=== PATIENT | female | born 2000 | race Caucasian/White ===

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

== ENCOUNTER 2020-11-13 23:40 | Inpatient (IN) ==
[2020-11-14] MEDS ORDERED: LABETALOL HCL 100 MG TAB PO ONE (00:24)
[2020-11-14] MEDS ORDERED: OXYTOCIN 30 UNITS/500 ML BAG IV PRN ×3 (00:25→14:18)
[2020-11-14] MEDS ORDERED: BUTORPHANOL TARTRATE 1 MG/ML VIAL IV ONE (00:35)
--- NOTE | 2020-11-14 00:35 | History & Physical Report ---
Date of Service November 14, 2020 Assessment & Plan (1) Active labor at term: Plan: 20-year-old G1, P0 at 40 weeks and 1 days of gestation presenting with contractions and cervical change, Elevated blood pressures, asymptomatic, developing preeclampsia versus pain re lated elevation of blood pressures, and 3+ protein on urine dip, heart rate reassuring, GBS negative, Plan to admit, monitor, labs, labetalol p.o. stat and monitor closely for blood pressures, Discussed pain management with IV pain medication versus epidural. Patient desires IV pain medication for now and desires to sleep. All questions were answered. (2) Elevated blood pressure affecting in third trimester, antepartum: (3) Proteinuria affecting in second trimester: History of Present Illness Primary Care Provider: Juan Francisco Serrano Patient is an 20-year-old G1, P0 at 40 weeks and 1 days of gestation who has been feeling contractions since yesterday morning, they got more regular and painful since 5 PM last night. Patient denies leakage of fluid or vaginal bleeding. Patient reports good movements. She was seen in the office yesterday afternoon and her cervix was 3 cm dilated. She was scheduled for induction of labor for this morning due to APARNA of 6.7 cm. She denies headaches, change in her vision, nausea vomiting, epigastric or right upper quadrant pain. She denies Covid symptoms, fever, chills no recent contact with Covid patients. Her has been uncomplicated except 1 class I obesity, 2) gestational proteinuria, noted on November 10 with a PC ratio of 586 mg/g, blood pressure was 150/90 at the office yesterday and elevated today with no symptoms. Urine dip today has 3+ protein. Allergies Allergy/AdvReac Type Severity Reaction Status Date / Time No Known Allergies Allergy Verified 11/13/20 23:59 Home Medications Medication Instructions Recorded Confirmed Type prenat.vits,adrian,ovs-[id number]-rfnao 1 tab PO DAILY 11/13/20 11/13/20 History Patient History Medical History Fracture, finger left middle finger fracture- pins placed Surgical History Hx of left knee surgery benign tumor removed [place] teeth removed Social History Smoking Status: Never smoker Hx Alcohol Use: No Hx Substance Use: No Preferred Language: Peruvian Communication Ability: Effective Rn Birthing Required: No Beliefs That Will Affect Care: None marital status: Current Living Situation: Parent Current Living Situation Comment: lives with her father Other Information That Helps Us Care for You: No Feels Safe at Home: Yes Safety Concerns: Feels Safe At This Time Assistive Devices: None [employer] History History of STDs including chlamydia, gonorrhea nor herpes Review of Systems All systems reviewed & are unremarkable except as noted in HPI & below as per Subjective / HPI Physical Exam Constitutional: WD/WN, vitals as above well developed, well nourished, + acute distress (Not in acute distress with contractions pain level is 4 out of 10) and + obese Gastrointestinal (Abdomen): normal bowel sounds, soft, nontender, no hepatosplenomegaly Genitourinary: normal external appearance OB Exam Abdomen: + vertex Manual OB Exam: + cervical dilation 4 cm, + cervical effacement 80% and + station -2 OB Exam Monitor Tracing: + external uterine monitor used and + category I Results & Data ([facility]) Vital Signs (Past 12 Hours) Vital Signs Temp Pulse Resp BP 11/14/20 00:19 89 179/102 H 11/14/20 00:07 79 150/99 H 11/14/20 00:01 18 11/13/20 23:56 36.8 C 86 18 145/80 H
[2020-11-14] MEDS: LACTATED RINGER'S 1,000 ML IV PRN ×3 (00:42→10:06)
[2020-11-14 00:53] LABS: Hematocrit (blood only) 35.1 % (37-47); Hemoglobin 11.6 g/dL (12.0-16.0); Mean Corpuscular Volume 81.8 fL (80-100); Mean Platelet Volume 9.9 fL (7.4-10.4); Platelet Count 352 K/uL (130-400); RDW Coefficient of Variation 14.9 % (11.5-14.5); RDW Standard Deviation 43.1 fL (36.4-46.3); Red Blood Count 4.29 M/uL (4.2-5.4); White Blood Count 13.71 K/uL (4.8-10.8)
[2020-11-14 01:08] LABS: Total Protein Urine Random 393.1 mg/dl (0-11.9)
[2020-11-14 01:09] LABS: Albumin Level 2.5 gm/dl (3.4-5.0); BUN Creatinine Ratio 15.6 (10-20); Calcium 8.9 mg/dl (8.5-10.1); Creatinine Clr Calc Pharmacy 170.9 ml/min; Est GFR (African American) 144.2 ml/min; Est GFR (Non-African American) 124.4 ml/min; Potassium 4.2 mmol/L (3.5-5.1)
[2020-11-14 01:12] LABS: Albumin Globulin Ratio 0.6 (0.9-2); Bilirubin,Total 0.2 mg/dl (0.2-1); Globulin 4.1 gm/dl (2.5-4.0); Total Protein 6.6 gm/dl (6.4-8.2)
[2020-11-14 02:15] LABS: Fibrinogen 431 mg/dl (184-400); INR 0.9 (0.9-1.1); Partial Thromboplastin Time 26.3 Seconds (21.0-31.0); Prothrombin Time 8.9 Seconds (9.0-12.0)
[2020-11-14] MEDS ORDERED: BUPIVACAINE 0.25% 30 ML VIAL ONE (04:35)
[2020-11-14] MEDS ORDERED: SODIUM CHLORIDE 0.9% INJ 10 ML VIAL ONE (04:35)
[2020-11-14] MEDS ORDERED: ePHEDrine sulfate 50 MG/ML AMP ONE (04:35)
[2020-11-14] MEDS ORDERED: fentaNYL citrate 100 MCG/2 ML VIAL ONE (04:36)
[2020-11-14] MEDS ORDERED: fentaNYL 2MCG/ML ROPIVACAINE 1.25MG/ML 100 ML BAG EPI ONE (04:36)
[2020-11-14] MEDS ORDERED: ePHEDrine sulfate 50 MG/ML AMP IV PRN (05:43)
[2020-11-14] MEDS ORDERED: ONDANSETRON INJ 2 MG/ML 2 ML VIAL IV PRN (05:43)
[2020-11-14] MEDS ORDERED: fentaNYL 2MCG/ML ROPIVACAINE 1.25MG/ML 100 ML BAG EPI PRN (05:43)
[2020-11-14] MEDS ORDERED: NALOXONE HCL 1 MG in SODIUM CHLORIDE 0.9% 1000ML 1,000 ML IV PRN (05:43)
[2020-11-14] MEDS ORDERED: NALBUPHINE HCL INJ 10 MG/ML AMP IV PRN (05:43)
[2020-11-14] MEDS ORDERED: NALOXONE HCL 0.4 MG/1 ML VIAL/CARP IV PRN (05:43)
[2020-11-14] MEDS ORDERED: diphenhydrAMINE 50 MG/ML VIAL IV PRN (05:43)
--- NOTE | 2020-11-14 05:43 | Anesthesiology Consultation ---
Date of Service November 14, 2020 Assessment & Plan ASA ASA2 Proposed Anesthesia Anesthesia Type: Labor Epidural Risk / Benefits Reviewed With: PT / POA / Parent / Guardian, Accepts Plan and Informed Consent Obtained History Height/Weight Height: 5 ft 7 in Weight: 117.48 kg Allergies Allergy/AdvReac Type Severity Reaction Status Date / Time No Known Allergies Allergy Verified 11/13/20 23:59 Medications Home Medications Medication Instructions Recorded Confirmed Last Taken prenat.vits,adrian,[id number]-[id number] 1 tab PO DAILY 11/13/20 11/13/20 11/13/20 08:00 Active Medications Generic Name Dose Route Start Last Admin Trade Name Freq PRN Reason Stop Dose Admin Lactated Ringer's 1,000 mls @ 150 mls/hr 11/14/20 00:25 11/14/20 04:57 Lr IV 11/16/20 00:24 150 mls/hr .[id number] PRN Administration L&D Protocol Protocol Oxytocin 30 units in 500 mls @ 3 mls/hr 11/14/20 01:26 11/14/20 05:00 Pitocin IV 11/16/20 01:25 0.18 units/hr .Q24H PRN 3 mls/hr Labor Induction/Augmentation Titration Protocol 0.18 UNITS/HR Past Medical History Medical History Fracture, finger left middle finger fracture- pins placed Exercise / Class Metabolic Activity II 4-5 Yardwork/Stairs/Walk up hill Past Surgical History Surgical History Hx of left knee surgery benign tumor removed [place] teeth removed Past Anesthesia History No Hx of Anesthesia Complications and No Family Hx of Anesthesia Complications History of PONV No Hx of PONV and No Hx of Motion Sickness Social History Smoking Status: Never smoker Hx Alcohol Use: No Hx Substance Use: No Review of Systems denies fever/cough/ colds/ chest pain/ SOB/ AVIVA denies AVIVA Physical Exam Vital Signs Last Vital Signs Temp 36.8 C 11/14/20 03:39 Pulse 78 11/14/20 05:41 Resp 18 11/14/20 05:40 BP 114/66 11/14/20 05:41 Pulse Ox 98 11/14/20 05:39 ENMT Mouth: no TMJ abnormality and no dentition abnormality Thyromental Distance: > or= 3.5 Finger Breadths Mallampati Class: II Neck neck extension not limited Respiratory normal respiratory effort; no respiratory distress Auscultation: lungs clear to auscultation bilaterally Cardiovascular Rate/Rhythm: regular rate and regular rhythm Neurologic moves all extremities Psychiatric Orientation: alert and oriented x 3 Testing Laboratory Results 11/14/20 00:34 11/14/20 00:34 PT 8.9 Seconds (9.0-12.0) L 11/14/20 00:34 INR 0.9 (0.9-1.1) 11/14/20 00:34 APTT 26.3 Seconds (21.0-31.0) 11/14/20 00:34 Blood Type O Positive 11/14/20 00:34 Antibody Screen NEGATIVE 11/14/20 00:34
--- NOTE | 2020-11-14 12:07 | Labor Progress Brief Note ---
Date of Service November 14, 2020 Assessment & Plan Admission and Anticipated Discharge Date Admission Date: November 14, 2020 Physical Exam Genitourinary: Manual OB Exam: + cervical dilation 5 cm and 6 cm, + cervical effacement 100%, + station -2 and + amniotic fluid clear AROM with Amni-hook clear fluid Results & Data ([facility]) Vital Signs (Past 12 Hours) Vital Signs Temp Pulse Resp BP Pulse Ox 11/14/20 12:00 113 H 98 11/14/20 11:55 79 98 11/14/20 11:53 83 140/83 11/14/20 11:50 80 97 11/14/20 11:45 86 98 11/14/20 11:40 88 97 11/14/20 11:39 86 127/83 11/14/20 11:35 82 98 11/14/20 11:30 93 H 98 11/14/20 11:25 81 97 11/14/20 11:24 78 122/77 11/14/20 11:20 80 97 11/14/20 11:15 80 97 11/14/20 11:10 82 97 11/14/20 11:09 82 121/81 11/14/20 11:05 83 97 11/14/20 11:01 18 11/14/20 11:00 84 97 11/14/20 10:55 80 97 11/14/20 10:54 83 127/82 11/14/20 10:50 83 97 11/14/20 10:45 82 97 11/14/20 10:40 84 97 11/14/20 10:38 81 129/81 11/14/20 10:35 77 97 11/14/20 10:31 37.1 C 20 11/14/20 10:30 87 98 11/14/20 10:25 83 98 11/14/20 10:24 76 134/82 11/14/20 10:20 79 98 11/14/20 10:15 93 H 98 11/14/20 10:10 83 97 11/14/20 10:09 88 146/96 H 11/14/20 10:05 82 97 11/14/20 10:01 18 11/14/20 10:00 81 98 11/14/20 09:55 75 96 11/14/20 09:54 76 135/81 11/14/20 09:50 80 97 11/14/20 09:45 76 96 11/14/20 09:40 76 96 11/14/20 09:38 75 133/81 11/14/20 09:35 76 96 11/14/20 09:31 37.1 C 20 11/14/20 09:30 74 97 11/14/20 09:25 83 137/88 98 11/14/20 09:19 82 100 11/14/20 09:14 82 98 11/14/20 09:10 73 118/70 11/14/20 09:09 75 97 11/14/20 09:04 75 97 11/14/20 09:01 20 11/14/20 08:59 77 98 11/14/20 08:54 75 121/69 97 11/14/20 08:49 79 98 11/14/20 08:44 81 99 11/14/20 08:39 80 98 11/14/20 08:38 82 123/83 11/14/20 08:34 94 H 98 11/14/20 08:31 20 11/14/20 08:29 81 98 11/14/20 08:24 87 126/82 98 11/14/20 08:19 78 98 11/14/20 08:14 78 98 11/14/20 08:09 75 98 11/14/20 08:08 81 125/79 11/14/20 08:04 75 98 11/14/20 08:01 37.2 C 20 11/14/20 07:59 79 98 11/14/20 07:54 82 98 11/14/20 07:53 78 128/76 11/14/20 07:49 85 99 11/14/20 07:46 20 11/14/20 07:44 88 98 11/14/20 07:39 92 H 133/75 99 11/14/20 07:34 77 97 11/14/20 07:31 20 11/14/20 07:29 79 97 11/14/20 07:24 81 97 11/14/20 07:23 79 124/65 11/14/20 07:19 82 96 11/14/20 07:15 20 11/14/20 07:14 98 H 97 11/14/20 07:09 82 122/68 97 11/14/20 07:04 90 99 11/14/20 06:59 85 96 11/14/20 06:55 80 121/73 11/14/20 06:54 83 96 11/14/20 06:49 88 98 11/14/20 06:44 82 98 11/14/20 06:39 83 98 11/14/20 06:34 84 98 11/14/20 06:29 94 H 98 11/14/20 06:24 75 18 127/74 97 11/14/20 06:19 78 98 11/14/20 06:14 82 98 11/14/20 06:11 36.6 C 18 11/14/20 06:09 79 99 11/14/20 06:06 79 141/77 H 11/14/20 06:04 83 98 11/14/20 06:02 82 140/74 11/14/20 05:59 78 98 11/14/20 05:57 78 116/60 11/14/20 05:54 80 99 11/14/20 05:53 83 18 108/56 L 11/14/20 05:49 79 97 11/14/20 05:47 79 110/64 11/14/20 05:44 79 97 11/14/20 05:41 78 114/66 11/14/20 05:40 83 18 113/63 11/14/20 05:39 79 98 11/14/20 05:37 85 116/60 11/14/20 05:34 80 115/62 99 11/14/20 05:31 78 18 118/66 11/14/20 05:29 88 98 11/14/20 05:28 82 16 134/75 11/14/20 05:24 82 98 11/14/20 05:19 86 99 11/14/20 05:14 77 98 11/14/20 05:09 79 98 11/14/20 05:04 102 H 99 11/14/20 04:59 101 H 99 11/14/20 04:54 78 98 11/14/20 04:49 75 97 11/14/20 04:44 82 129/74 98 11/14/20 03:40 75 125/70 11/14/20 03:39 36.8 C 16 11/14/20 03:18 83 121/66 11/14/20 02:48 83 114/59 L 11/14/20 02:18 88 114/56 L 11/14/20 01:49 81 110/59 L 11/14/20 01:03 75 121/67 11/14/20 00:54 77 121/64 11/14/20 00:43 86 18 143/93 H 11/14/20 00:19 89 179/102 H 11/14/20 00:07 79 150/99 H
[2020-11-14] MEDS ORDERED: NURSING L&D Epidural Breakthrough Pain Update ONE (13:07)
--- NOTE | 2020-11-14 14:14 | Delivery Summary ---
Vaginal Delivery Summary Date of Service November 14, 2020 Vaginal Delivery Summary Delivery Note live male TARYN over intact perineum with delayed cord clamping and Apgars of 8/9 weight pending. Cord blood obtained followed by spontaneous delivery of intact placenta. No tears. EBL 100 ml. Final sponge and instrument count are correct. Mom and baby stable.
[2020-11-14] MEDS ORDERED: DIPHTHERIA/TETANUS/PERTUSSIS 0.5 ML SYR/VIAL IM ONE (14:18)
[2020-11-14] MEDS ORDERED: bisacodyL 10 MG SUPP PR PRN (14:18)
[2020-11-14] MEDS ORDERED: SUPERCREAM 0.870% 15 GM JAR EXT PRN (14:18)
[2020-11-14] MEDS ORDERED: HYDROCORTISONE ACETATE 25 MG SUPP PR PRN (14:18)
[2020-11-14] MEDS ORDERED: BENZOCAINE 20% AER SPR 82.5 GM CAN EXT PRN (14:18)
[2020-11-14] MEDS ORDERED: ACETAMINOPHEN 325 MG TAB PO PRN (14:18)
--- NOTE | 2020-11-14 16:45 | Anesthesia Procedure Note ---
Date of Service November 14, 2020 Anesthesia Post Epidural Note Vital Signs Vital Signs: Temp Pulse Resp BP Pulse Ox 36.7 C 87 20 130/81 90 11/14/20 15:50 11/14/20 16:23 11/14/20 14:35 11/14/20 16:23 11/14/20 13:55 Pain Intensity Bilateral Lower Abdomen: Pain Intensity: 1 Notes Mental Status: alert / awake / arousable Nausea / Vomiting: adequately controlled Pain: adequately controlled Airway Patency, RR, SpO2: stable & adequate BP & HR: stable & adequate Hydration State: stable & adequate Neuraxial Anesthesia: was administered and sensory block is resolving Anesthetic Complications: no major complications apparent and Pt Satisfied with anesthetic care Epidural: Removed without complications and With tip intact
[2020-11-14] MEDS: IBUPROFEN 600 MG TAB PO PRN (19:24)
[2020-11-14] MEDS: DOCUSATE SODIUM 100 MG CAP PO SCH (21:01)
[2020-11-15] MEDS: IBUPROFEN 600 MG TAB PO PRN (05:56)
[2020-11-15 06:37] LABS: Hematocrit (blood only) 32.3 % (37-47); Hemoglobin 10.4 g/dL (12.0-16.0); Mean Corpuscular Hemoglobin 26.7 pg (25-34); Mean Corpuscular Hgb Conc 32.2 g/dL (32-36); Mean Platelet Volume 9.3 fL (7.4-10.4); Platelet Count 259 K/uL (130-400); RDW Coefficient of Variation 15.4 % (11.5-14.5); RDW Standard Deviation 45.7 fL (36.4-46.3); Red Blood Count 3.89 M/uL (4.2-5.4); White Blood Count 12.81 K/uL (4.8-10.8)
[2020-11-15] MEDS: FERROUS SULFATE 325 MG TAB PO SCH (08:02)
[2020-11-15] MEDS: DOCUSATE SODIUM 100 MG CAP PO SCH ×2 (08:02→21:05)
[2020-11-15] MEDS: PRENATAL VITAMIN 1 TAB PO SCH (08:02)
--- NOTE | 2020-11-15 08:42 | Obstetrical Progress Note ---
Date of Service November 15, 2020 Assessment & Plan Admission and Anticipated Discharge Date Admission Date: November 14, 2020 Subjective Patient is seen and examined. She feels well, no complaints. Ambulating without dizziness Voiding without difficulty Tolerating regular diet with out N&V Bleeding is minimal No fever/ chills/ CP/ SOB/ N&V/ Leg pain Breast feeding without problems Vital Signs Temp Pulse Resp BP Pulse Ox 11/15/20 03:30 36.7 C 82 18 123/87 98 11/14/20 23:30 36.7 C 76 18 126/79 99 Lab Results 11/14/20 11/14/20 11/14/20 Range/Units 00:29 00:29 00:30 WBC (4.8-10.8) K/uL RBC (4.2-5.4) M/uL Hgb (12.0-16.0) g/dL Hct (37-47) % MCV (80-100) fL MCH (25-34) pg MCHC (32-36) g/dL RDW Std Deviation (36.4-46.3) fL RDW Coeff of Lindsey (11.5-14.5) % Plt Count (130-400) K/uL MPV (7.4-10.4) fL PT (9.0-12.0) Seconds INR (0.9-1.1) APTT (21.0-31.0) Seconds PTT Ratio Fibrinogen (184-400) mg/dl Sodium (136-145) mmol/L Potassium (3.5-5.1) mmol/L Chloride (98-107) mmol/L Carbon Dioxide (21-32) mmol/L Anion Gap (3-11) BUN (7-18) mg/dl Creatinine (0.6-1.2) mg/dl Est Cr Clr Drug Dosing ml/min Est GFR ( Amer) ml/min Est GFR (Non-Af Amer) ml/min BUN/Creatinine Ratio (10-20) Glucose (70-99) mg/dl Calcium (8.5-10.1) mg/dl Total Bilirubin (0.2-1) mg/dl AST (15-37) U/L ALT (12-78) U/L Alkaline Phosphatase (45-117) U/L Total Protein (6.4-8.2) gm/dl Albumin (3.4-5.0) gm/dl Globulin (2.5-4.0) gm/dl Albumin/Globulin Ratio (0.9-2) Ur Random Creatinine 196.0 mg/dl U Random Total Protein 393.1 H (0-11.9) mg/dl Protein/Creatinin Ratio 2.0 H (0-0.2) COVID-19 [facility] SARS-CoV-2, RNA, NAAT NEGATIVE (NEGATIVE) Blood Type Antibody Screen 11/14/20 11/14/20 11/14/20 Range/Units 00:34 00:34 00:34 WBC 13.71 H (4.8-10.8) K/uL RBC 4.29 (4.2-5.4) M/uL Hgb 11.6 L (12.0-16.0) g/dL Hct 35.1 L (37-47) % MCV 81.8 (80-100) fL MCH 27.0 (25-34) pg MCHC 33.0 (32-36) g/dL RDW Std Deviation 43.1 (36.4-46.3) fL RDW Coeff of Lindsey 14.9 H (11.5-14.5) % Plt Count 352 (130-400) K/uL MPV 9.9 (7.4-10.4) fL PT 8.9 L (9.0-12.0) Seconds INR 0.9 (0.9-1.1) APTT 26.3 (21.0-31.0) Seconds PTT Ratio 1.0 Fibrinogen 431 H (184-400) mg/dl Sodium (136-145) mmol/L Potassium (3.5-5.1) mmol/L Chloride (98-107) mmol/L Carbon Dioxide (21-32) mmol/L Anion Gap (3-11) BUN (7-18) mg/dl Creatinine (0.6-1.2) mg/dl Est Cr Clr Drug Dosing ml/min Est GFR ( Amer) ml/min Est GFR (Non-Af Amer) ml/min BUN/Creatinine Ratio (10-20) Glucose (70-99) mg/dl Calcium (8.5-10.1) mg/dl Total Bilirubin (0.2-1) mg/dl AST (15-37) U/L ALT (12-78) U/L Alkaline Phosphatase (45-117) U/L Total Protein (6.4-8.2) gm/dl Albumin (3.4-5.0) gm/dl Globulin (2.5-4.0) gm/dl Albumin/Globulin Ratio (0.9-2) Ur Random Creatinine mg/dl U Random Total Protein (0-11.9) mg/dl Protein/Creatinin Ratio (0-0.2) COVID-19 Eval Order SARS-CoV-2, RNA, NAAT (NEGATIVE) Blood Type O Positive Antibody Screen NEGATIVE 11/14/20 11/15/20 Range/Units 00:34 06:25 WBC 12.81 H (4.8-10.8) K/uL RBC 3.89 L (4.2-5.4) M/uL Hgb 10.4 L (12.0-16.0) g/dL Hct 32.3 L (37-47) % MCV 83.0 (80-100) fL MCH 26.7 (25-34) pg MCHC 32.2 (32-36) g/dL RDW Std Deviation 45.7 (36.4-46.3) fL RDW Coeff of Lindsey 15.4 H (11.5-14.5) % Plt Count 259 (130-400) K/uL MPV 9.3 (7.4-10.4) fL PT (9.0-12.0) Seconds INR (0.9-1.1) APTT (21.0-31.0) Seconds PTT Ratio Fibrinogen (184-400) mg/dl Sodium 137 (136-145) mmol/L Potassium 4.2 (3.5-5.1) mmol/L Chloride 109 H (98-107) mmol/L Carbon Dioxide 22 (21-32) mmol/L Anion Gap 6.0 (3-11) BUN 11 (7-18) mg/dl Creatinine 0.69 (0.6-1.2) mg/dl Est Cr Clr Drug Dosing 170.9 ml/min Est GFR ( Amer) 144.2 ml/min Est GFR (Non-Af Amer) 124.4 ml/min BUN/Creatinine Ratio 15.6 (10-20) Glucose 101 H (70-99) mg/dl Calcium 8.9 (8.5-10.1) mg/dl Total Bilirubin 0.2 (0.2-1) mg/dl AST 14 L (15-37) U/L ALT 13 (12-78) U/L Alkaline Phosphatase 177 H (45-117) U/L Total Protein 6.6 (6.4-8.2) gm/dl Albumin 2.5 L (3.4-5.0) gm/dl Globulin 4.1 H (2.5-4.0) gm/dl Albumin/Globulin Ratio 0.6 L (0.9-2) Ur Random Creatinine mg/dl U Random Total Protein (0-11.9) mg/dl Protein/Creatinin Ratio (0-0.2) COVID-19 Eval Order SARS-CoV-2, RNA, NAAT (NEGATIVE) Blood Type Antibody Screen PE: General: Alert, orientedx3, NAD Abd: soft, NT, fundus firm, below Umbilicus Perineum intact, Lochia rubra minimal Ext; NT, no edema AP: 20 yo s/p , ppd# 1 VSS Afebrile doing well Continue routine care All questions were answered D/C home tomorrow Results & Data ([facility]) Vital Signs (Past 12 Hours) Vital Signs Temp Pulse Resp BP Pulse Ox 11/15/20 03:30 36.7 C 82 18 123/87 98 11/14/20 23:30 36.7 C 76 18 126/79 99
[2020-11-15] MEDS ORDERED: NON-FORMULARY MEDICATION (Prenat.Vits,Cal,Min-Iron-Folic Tablet) PO SCH (09:00)
[2020-11-15] MEDS ORDERED: bisacodyL 5 MG TABEC PO SCH (20:00)
[2020-11-16 06:50] LABS: Hematocrit (blood only) 32.7 % (37-47); Hemoglobin 10.5 g/dL (12.0-16.0)
[2020-11-16] MEDS: DOCUSATE SODIUM 100 MG CAP PO SCH (08:32)
[2020-11-16] MEDS: PRENATAL VITAMIN 1 TAB PO SCH (08:32)
[2020-11-16] MEDS: FERROUS SULFATE 325 MG TAB PO SCH (08:32)
[2020-11-16] MEDS: IBUPROFEN 600 MG TAB PO PRN (08:32)
--- NOTE | 2020-11-16 11:43 | Obstetrical Progress Note ---
Date of Service November 16, 2020 Assessment & Plan Admission and Anticipated Discharge Date Admission Date: November 14, 2020 Subjective Patient is seen and examined. She feels well, no complaints. Ambulating without dizziness Voiding without difficulty Tolerating regular diet with out N&V Bleeding is minimal No fever/ chills/ CP/ SOB/ N&V/ Leg pain Breast feeding without problems Vital Signs Temp Pulse Resp BP Pulse Ox 11/16/20 11:39 36.5 C 82 18 137/84 98 11/16/20 10:00 137/84 11/16/20 08:45 36.5 C 82 18 149/106 H 98 11/15/20 23:35 37.1 C 86 16 122/83 98 11/15/20 19:45 36.9 C 87 16 125/82 98 11/15/20 15:33 36.9 C 82 18 118/77 97 11/15/20 12:50 36.7 C 91 H 18 131/84 98 Intake and Output 11/15/20 11/16/20 11/16/20 22:59 06:59 14:59 Other: Weight 117.48 kg Patient Weight 11/17/20 06:59 Weight 117.48 kg Lab Results 11/14/20 11/14/20 11/14/20 Range/Units 00:29 00:29 00:30 WBC (4.8-10.8) K/uL RBC (4.2-5.4) M/uL Hgb (12.0-16.0) g/dL Hct (37-47) % MCV (80-100) fL MCH (25-34) pg MCHC (32-36) g/dL RDW Std Deviation (36.4-46.3) fL RDW Coeff of Lindsey (11.5-14.5) % Plt Count (130-400) K/uL MPV (7.4-10.4) fL PT (9.0-12.0) Seconds INR (0.9-1.1) APTT (21.0-31.0) Seconds PTT Ratio Fibrinogen (184-400) mg/dl Sodium (136-145) mmol/L Potassium (3.5-5.1) mmol/L Chloride (98-107) mmol/L Carbon Dioxide (21-32) mmol/L Anion Gap (3-11) BUN (7-18) mg/dl Creatinine (0.6-1.2) mg/dl Est Cr Clr Drug Dosing ml/min Est GFR ( Amer) ml/min Est GFR (Non-Af Amer) ml/min BUN/Creatinine Ratio (10-20) Glucose (70-99) mg/dl Calcium (8.5-10.1) mg/dl Total Bilirubin (0.2-1) mg/dl AST (15-37) U/L ALT (12-78) U/L Alkaline Phosphatase (45-117) U/L Total Protein (6.4-8.2) gm/dl Albumin (3.4-5.0) gm/dl Globulin (2.5-4.0) gm/dl Albumin/Globulin Ratio (0.9-2) Ur Random Creatinine 196.0 mg/dl U Random Total Protein 393.1 H (0-11.9) mg/dl Protein/Creatinin Ratio 2.0 H (0-0.2) [facility], NAAT NEGATIVE (NEGATIVE) Blood Type Antibody Screen 11/14/20 11/14/20 11/14/20 Range/Units 00:34 00:34 00:34 WBC 13.71 H (4.8-10.8) K/uL RBC 4.29 (4.2-5.4) M/uL Hgb 11.6 L (12.0-16.0) g/dL Hct 35.1 L (37-47) % MCV 81.8 (80-100) fL MCH 27.0 (25-34) pg MCHC 33.0 (32-36) g/dL RDW Std Deviation 43.1 (36.4-46.3) fL RDW Coeff of Lindsey 14.9 H (11.5-14.5) % Plt Count 352 (130-400) K/uL MPV 9.9 (7.4-10.4) fL PT 8.9 L (9.0-12.0) Seconds INR 0.9 (0.9-1.1) APTT 26.3 (21.0-31.0) Seconds PTT Ratio 1.0 Fibrinogen 431 H (184-400) mg/dl Sodium (136-145) mmol/L Potassium (3.5-5.1) mmol/L Chloride (98-107) mmol/L Carbon Dioxide (21-32) mmol/L Anion Gap (3-11) BUN (7-18) mg/dl Creatinine (0.6-1.2) mg/dl Est Cr Clr Drug Dosing ml/min Est GFR ( Amer) ml/min Est GFR (Non-Af Amer) ml/min BUN/Creatinine Ratio (10-20) Glucose (70-99) mg/dl Calcium (8.5-10.1) mg/dl Total Bilirubin (0.2-1) mg/dl AST (15-37) U/L ALT (12-78) U/L Alkaline Phosphatase (45-117) U/L Total Protein (6.4-8.2) gm/dl Albumin (3.4-5.0) gm/dl Globulin (2.5-4.0) gm/dl Albumin/Globulin Ratio (0.9-2) Ur Random Creatinine mg/dl U Random Total Protein (0-11.9) mg/dl Protein/Creatinin Ratio (0-0.2) COVID-19 Eval Order SARS-CoV-2, RNA, NAAT (NEGATIVE) Blood Type O Positive Antibody Screen NEGATIVE 11/14/20 11/15/20 11/16/20 Range/Units 00:34 06:25 06:15 WBC 12.81 H (4.8-10.8) K/uL RBC 3.89 L (4.2-5.4) M/uL Hgb 10.4 L 10.5 L (12.0-16.0) g/dL Hct 32.3 L 32.7 L (37-47) % MCV 83.0 (80-100) fL MCH 26.7 (25-34) pg MCHC 32.2 (32-36) g/dL RDW Std Deviation 45.7 (36.4-46.3) fL RDW Coeff of Lindsey 15.4 H (11.5-14.5) % Plt Count 259 (130-400) K/uL MPV 9.3 (7.4-10.4) fL PT (9.0-12.0) Seconds INR (0.9-1.1) APTT (21.0-31.0) Seconds PTT Ratio Fibrinogen (184-400) mg/dl Sodium 137 (136-145) mmol/L Potassium 4.2 (3.5-5.1) mmol/L Chloride 109 H (98-107) mmol/L Carbon Dioxide 22 (21-32) mmol/L Anion Gap 6.0 (3-11) BUN 11 (7-18) mg/dl Creatinine 0.69 (0.6-1.2) mg/dl Est Cr Clr Drug Dosing 170.9 ml/min Est GFR ( Amer) 144.2 ml/min Est GFR (Non-Af Amer) 124.4 ml/min BUN/Creatinine Ratio 15.6 (10-20) Glucose 101 H (70-99) mg/dl Calcium 8.9 (8.5-10.1) mg/dl Total Bilirubin 0.2 (0.2-1) mg/dl AST 14 L (15-37) U/L ALT 13 (12-78) U/L Alkaline Phosphatase 177 H (45-117) U/L Total Protein 6.6 (6.4-8.2) gm/dl Albumin 2.5 L (3.4-5.0) gm/dl Globulin 4.1 H (2.5-4.0) gm/dl Albumin/Globulin Ratio 0.6 L (0.9-2) Ur Random Creatinine mg/dl U Random Total Protein (0-11.9) mg/dl Protein/Creatinin Ratio (0-0.2) COVID-19 Eval Order SARS-CoV-2, RNA, NAAT (NEGATIVE) Blood Type Antibody Screen PE: General: Alert, orientedx3, NAD Abd: soft, NT, fundus firm, below Umbilicus Perineum intact, Lochia rubra minimal Ext; NT, no edema AP: 20 yo s/p , ppd# 2 VSS Afebrile doing well Continue routine care All questions were answered Discussed when to call D/C home , f/u in office Results & Data ([facility]) Vital Signs (Past 12 Hours) Vital Signs Temp Pulse Resp BP Pulse Ox 11/16/20 10:00 137/84 11/16/20 08:45 36.5 C 82 18 149/106 H 98
== END 2020-11-16 12:15 | disposition home or self-care (01) | DRG 807 ==
LOC: OPB 23:40 → 4S1 23:45 → 4S2 11-14 17:01 → EDSTATUS 11-14 23:39